=== PATIENT | male | born 1950 | race Caucasian/White ===

== ENCOUNTER → 2022-05-09 09:59 | Outpatient (CLI) | payer MEDICARE, SELFPAY ==
[2022-05-09 11:21] LABS: COVID19 -Nasal RAPID Negative (Negative)
--- NOTE | 2022-05-10 18:25 | DI.NM.S_ITS ---
DATE OF SERVICE: 05/09/2022 PROCEDURE: Exercise treadmill stress and rest myocardial perfusion imaging with gating to assess ejection fraction and regional wall motion. ORDERING PROVIDER: Jourdan Wang MD INDICATIONS: The patient is a 71-year-old male with a history of paroxysmal atrial fibrillation and pulmonary hypertension with dyspnea who requires preoperative evaluation prior to surgery. CARDIAC STRESS: The patient was able to exercise for 5 minutes, 6 seconds on a standard Ba protocol suggesting moderately impaired exercise capacity with an JANUARY of +28%. He had a normal heart rate and blood pressure response to exercise, achieving a maximum heart rate of 138 BPM (93% of his predicted maximum). He had no chest discomfort or other anginal symptoms. His resting ECG shows sinus rhythm with normal ST segments. There are no significant ST segment shifts or arrhythmias with stress. At 4 minutes, 10 seconds of exercise, at a heart rate of 137 BPM, 25.2 mCi of technetium-99m Myoview was injected and he was imaged 15 minutes later using a gated SPECT acquisition protocol. The day prior while at rest, he had been injected with 26.1 mCi of technetium-99m Myoview was imaged 15 minutes later, again using a gated SPECT acquisition protocol. FINDINGS: 1. Raw data: There is fair myocardial tracer uptake with some evidence for diaphragmatic attenuation but no significant motion. Lung/heart ratio is normal at 0.25 with a normal TID ratio of 1.08. Unfortunately, the patient was unable to lie prone to assess for diaphragmatic attenuation. 2. Quantitated gated SPECT: Post-stress ejection fraction is estimated at 67% without any focal wall motion abnormality, and specifically, the distal inferior wall appears to have normal contractility. The resting ejection fraction is 59% with an increased resting end-diastolic volume of 184 mL. 3. Myocardial perfusion imaging: Post-stress supine images show a fairly normal myocardial perfusion pattern except for a small focal mild perfusion defect in the distal inferior wall extending to the apex, consistent with possible diaphragmatic attenuation. Unfortunately, prone images were unable to be obtained to assess for this. The resting images show a more uniform pattern of tracer activity with improvement in this distal inferior wall defect. IMPRESSION: 1. Possible abnormal myocardial perfusion study but with reduced specificity and is a low-risk study. 2. Small, focal, mild reversible perfusion defect in the distal inferior wall that could reflect a small volume of myocardial ischemia or diaphragmatic attenuation. Yet, if present, the volume of ischemia is small and, thus, this is a low-risk study. 3. Normal left ventricular systolic function without focal abnormality but increased left ventricular volumes. 4. Moderately reduced exercise capacity without angina or ECG evidence of ischemia. Rick Ring - GUTIERREZ/paige/GIN doc#: [id number]/job#: [id number] dd: 05/10/2022 16:33:00 dt: 05/10/2022 17:22:00 DICTATING MD/COPIES TO: Louis Nails MD; Jourdan Wang MD COPIES MNE: ANUSHA;
== END ==
PROVIDERS: Specialist; Family Provider Student in an Organized Health Care Education/Training Program; PCP Student in an Organized Health Care Education/Training Program; Referring Provider Student in an Organized Health Care Education/Training Program; Visit Provider Student in an Organized Health Care Education/Training Program
DX: I45.10 Unspecified right bundle-branch block (principal); I27.20 Pulmonary hypertension, unspecified; R06.00 Dyspnea, unspecified; Z20.822 Contact with and (suspected) exposure to COVID-19
CPT/HCPCS: 78452; 87635; 93017; A9502